=== PATIENT | male | born 1960 | race Caucasian/White ===

== ENCOUNTER → 2019-10-22 14:15 | Outpatient (BNVA) | payer OTHER, SELFPAY | PROVIDERS: PCP Family Medicine; Referring Provider Family Medicine; Visit Provider Nurse Practitioner | DX: R41.9 Unspecified symptoms and signs involving cognitive functions and awareness (principal); R47.1 Dysarthria and anarthria; R41.3 Other amnesia; R26.9 Unspecified abnormalities of gait and mobility | CPT/HCPCS: 99205; 99999 ==